=== PATIENT | female | born 1935 | race Caucasian/White ===

== ENCOUNTER 2018-08-29 13:04 | Emergency (ER) | payer SELFPAY ==
[~2018-08-29] VITALS: Wt 50.0 kg
[2018-08-29 13:10] VITALS: BP 114/56; PULSE 79; RESP 16
[2018-08-29] MEDS ORDERED: ACETAMINOPHEN 325 MG TAB PO ONE (15:00)
[2018-08-29] MEDS ORDERED: ACET500C5 PO (16:04)
--- NOTE | 2018-08-29 16:06 | ERD ---
ER Documentation Chief Complaint Chief Complaint RIGHT LEG/KNEE PAIN S/P GLF 3 DAYS AGO, AMBULATORY AT HOME HPI 83-year-old female sustained a mechanical fall 3 days ago. She tripped and fell and injured her right lower extremity. She had some knee pain which resolved. Her primary complaint today is calf pain. She has no restricted range of motion weakness, fevers, shortness of breath. ROS All systems reviewed and are negative except as per history of present illness. Medications Home Meds Active Scripts Acetaminophen* (Tylophen*) 500 Mg Capsule, 1 CAP PO Q6H PRN for PAIN AND OR ELEVATED TEMP, #20 CAP Prov:LEX BARRERA MD 08/29/18 Allergies Allergies: Coded Allergies: No Known Allergy (Unverified , 08/29/18) PMhx/Soc History of Surgery: Yes (right kidney stone removal) Hx Neurological Disorder: No Hx Respiratory Disorders: No Hx Cardiac Disorders: No Hx Psychiatric Problems: No Hx Miscellaneous Medical Probl: Yes (gastritis) Hx Alcohol Use: No Hx Substance Use: No Hx Tobacco Use: No Smoking Status: Never smoker Physical Exam Vitals Vital Signs Date Temp Pulse Resp B/P (MAP) Pulse Ox O2 O2 Flow FiO2 Time Delivery Rate 08/29/18 97.1 79 16 114/56 98 13:10 (75) Physical Exam Const: No acute distress Head: Atraumatic Eyes: Normal Conjunctiva ENT: Normal External Ears, Nose and Mouth. Neck: Full range of motion. No meningismus. Resp: Clear to auscultation bilaterally Cardio: Regular rate and rhythm, no murmurs Abd: Soft, non tender, non distended. Normal bowel sounds Skin: No petechiae or rashes Back: No midline or flank tenderness Ext: No cyanosis, or edema or tenderness primarily over the right calf. No effusion, warmth, erythema. Minimal generalized tenderness of the right knee. No deformities. Neur: Awake and alert Psych: Normal Mood and Affect Results 24 hrs Current Medications Medications Dose Sig/Jerrica Start Time Status Last (Trade) Ordered Route PRN Stop Time Admin Dose Reason Admin 650 mg ONCE ONCE 08/29/18 DC 08/29/18 Acetaminophen PO 15:00 14:44 (Tylenol 08/29/18 15:01 Tab) Procedures/MDM X-ray Knee 3V Interpreted by me: Bones: : Nondisplaced fracture of the right patella. Joints: No dislocation Foreign body: None. Impression-possible nondisplaced fracture of the right patella. Right lower extremity Doppler shows no evidence of DVT. X-ray Tib/Fib 2V Interpreted by me: Bones: No fracture Joints: No dislocation Foreign body: None. Impression-normal right tib-fib x-ray Serial examination shows that patient has no tenderness or deformity or swelling over the right patella. Suspect normal variant suggesting possible patella fracture which do not appear to be clinically significant given patient has no swelling, tenderness. Had resolution of pain after Tylenol. Patient will be discharged home with Tylenol, primary care and orthopedic follow-up for persistent pain. She should return sooner for fevers, redness, new worsening symptoms . there is no evidence of DVT, ischemia, deficits, infection. Departure Diagnosis: Primary Impression: Strain of calf muscle Encounter type: initial encounter Laterality: right Qualified Codes: S86.811A - Strain of other muscle(s) and tendon(s) at lower leg level, right leg, initial encounter Additional Impression: Fall with no significant injury Encounter type: initial encounter Qualified Codes: W19.XXXA - Unspecified fall, initial encounter Condition: Stable Patient Instructions: Muscle Strain, Extremity Referrals: EZE NIELSEN MD Additional Instructions: X-ray shows possible fracture of kneecap but not likely given that no significant pain. See orthopedist or primary doctor for further evaluation. Recheck for redness, new or worsening symptoms. Ultrasound shows no evidence of blood clot. See orthopedist for persistent pain next week. LEX BARRERA MD Aug 29, 2018 16:06
== END 2018-08-29 16:16 | disposition home or self-care (01) ==
LOC: FTE 13:04
DX: S86.811A Strain of other muscle(s) and tendon(s) at lower leg level, right leg, initial encounter (principal); W01.0XXA Fall on same level from slipping, tripping and stumbling without subsequent striking against object, initial encounter; Y92.9 Unspecified place or not applicable
CPT/HCPCS: 73562; 73590; 93971